=== PATIENT | male | born 1970 | race Caucasian/White ===

== ENCOUNTER → 2022-10-25 09:27 | Outpatient (BNVA) | payer OTHER, SELFPAY | PROVIDERS: Family Provider Family Medicine; PCP Family Medicine; Visit Provider Family Medicine | DX: Z12.5 Encounter for screening for malignant neoplasm of prostate (principal); N40.0 Benign prostatic hyperplasia without lower urinary tract symptoms; Z13.220 Encounter for screening for lipoid disorders; Z13.1 Encounter for screening for diabetes mellitus; Z51.81 Encounter for therapeutic drug level monitoring | CPT/HCPCS: 80053; 80061; 83036; 84153; 85025 ==

== ENCOUNTER → 2023-08-30 09:21 | Outpatient (BNVA) | payer OTHER, SELFPAY | PROVIDERS: Family Provider Family Medicine; PCP Family Medicine; Visit Provider Clinical Nurse Specialist Adult Health | DX: J02.9 Acute pharyngitis, unspecified (principal) | CPT/HCPCS: 87880 ==

== ENCOUNTER → 2023-10-31 10:28 | Outpatient (BNVA) | payer OTHER, SELFPAY | PROVIDERS: Family Provider Family Medicine; PCP Family Medicine; Visit Provider Family Medicine | DX: Z51.81 Encounter for therapeutic drug level monitoring (principal); N40.0 Benign prostatic hyperplasia without lower urinary tract symptoms; Z12.5 Encounter for screening for malignant neoplasm of prostate; R73.03 Prediabetes; I10 Essential (primary) hypertension | CPT/HCPCS: 80053; 83036; 84153; 85025 ==

== ENCOUNTER → 2023-11-14 11:08 | Outpatient (BNVA) | payer OTHER, SELFPAY | PROVIDERS: Family Provider Family Medicine; PCP Family Medicine; Visit Provider Family Medicine | DX: R97.20 Elevated prostate specific antigen [PSA] (principal) | CPT/HCPCS: 84153 ==

== ENCOUNTER 2024-02-09 15:13 | Outpatient (CLI) | payer OTHER, SELFPAY | END 2024-02-09 15:14 | disposition home or self-care (01) | LOC: RAD 15:13 | PROVIDERS: Family Provider Family Medicine; PCP Family Medicine; Visit Provider Family Medicine | DX: R97.20 Elevated prostate specific antigen [PSA] (principal); R10.9 Unspecified abdominal pain | CPT/HCPCS: 81000; 84153 ==

== ENCOUNTER 2024-02-09 15:32 | Outpatient (CLI) | payer OTHER, SELFPAY ==
--- NOTE | 2024-02-09 15:30 | US_ITS ---
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 TECHNIQUE: 2-D and color Doppler imaging of the kidney submitted. Right kidney: 11.8 cm x 5.7 cm x 6.3 cm. Normal echogenicity with no hydronephrosis or mass. Left kidney: 10.6 cm x 5.0 cm x 5.2 cm. Normal echogenicity with no hydronephrosis or mass. Aorta: Normal. Urinary Bladder: Normal distention. Prevoid volume: 510 mL. Postvoid volume 73 mL. Mildly enlarged heterogeneous prostate gland measures 4.3 x 5.5 x 3.9 cm. No bladder mass. US/US renal BI with PV bladder IMPRESSION: 1. Normal size kidneys with no hydronephrosis. 2. Moderate residual urinary bladder postvoid volume.
== END 2024-02-09 15:33 | disposition home or self-care (01) ==
LOC: RAD 15:32
PROVIDERS: Family Provider Family Medicine; PCP Family Medicine; Visit Provider Family Medicine
DX: R10.9 Unspecified abdominal pain (principal)
CPT/HCPCS: 76770; 76857

== ENCOUNTER → 2024-11-14 09:37 | Outpatient (BNVA) | payer OTHER, SELFPAY | PROVIDERS: Family Provider Family Medicine; PCP Family Medicine; Visit Provider Family Medicine | DX: Z00.00 Encounter for general adult medical examination without abnormal findings (principal); R73.03 Prediabetes; Z51.81 Encounter for therapeutic drug level monitoring; Z13.6 Encounter for screening for cardiovascular disorders | CPT/HCPCS: 80053; 80061; 83036; 85025 ==